=== PATIENT | male | born 1965 | race Caucasian/White ===

== ENCOUNTER → 2024-08-28 09:12 | Outpatient (REF) | payer OTHER, SELFPAY | LOC: RAD 09:12 | PROVIDERS: ATTENDING PHYSICIAN Internal Medicine Gastroenterology; FAMILY PHYSICIAN Family Medicine | DX: K86.2 Cyst of pancreas (principal) | CPT/HCPCS: 70030 ==

== ENCOUNTER → 2024-08-31 07:27 | Outpatient (REF) | payer OTHER, SELFPAY | LOC: PAVMRI 07:27 | PROVIDERS: ATTENDING PHYSICIAN Internal Medicine Gastroenterology; FAMILY PHYSICIAN Family Medicine | DX: K86.2 Cyst of pancreas (principal) | CPT/HCPCS: 74183; A9575 ==